=== PATIENT | male | born 1980 | race Caucasian/White ===

== ENCOUNTER 2018-08-25 09:26 | Day surgery (SDC) | payer MEDICAID, SELFPAY ==
--- NOTE | 2018-08-19 12:22 | EKG12_ITS ---
Test Reason : PRE OP Blood Pressure : / mmHG Vent. Rate : 068 BPM Atrial Rate : 068 BPM P-R Int : 156 ms QRS Dur : 080 ms QT Int : 366 ms P-R-T Axes : 035 056 063 degrees QTc Int : 389 ms Normal sinus rhythm Normal ECG Confirmed by MERLY WOODARD ([id number]), supervising editor trailer YINKA CONDON ([id number]) on 08/21/2018 1:08:35 PM Referred By: Stefano Molina Confirmed By:MERLY WOODARD
[2018-08-19 13:48] LABS: Absolute Lymphocyte Count 1.83 X10^3/ul (0.83-4.51); Basophil# 0.04 X10^3/uL; Basophil% 0.6 % (0-1); Eosinophil# 0.31 X10^3/uL; Eosinophils% 4.5 % (0-5); Hematocrit 47.9 % (40-54); Hemoglobin 16.1 g/dl (13.0-16.5); Lymphocyte # 1.83 X10^3/ul (4.0); Lymphocyte % 26.7 % (19-41); Mean Corp Hgb Conc 33.6 g/gl (32-36); Mean Corpuscular Volume 92.3 fL (80-94); Mean Platelet Vol. 10.4 fl (6.2-12.0); Monocyte# 0.63 X10^3/uL; Monocyte% 9.2 % (0-10); Neutrophil # 4.02 X10^3/uL (2.7-7.7); Neutrophil % 58.7 % (47-70); Platelet Count 320 K/mm3 (150-450); RBC Distribution Width CV 13.3 % (11.6-14.6); RBC Distribution Width SD 44.1 fl (35.1-43.9); Red Blood Count 5.19 M/mm3 (4.6-6.2); White Blood Count 6.9 K/mm3 (4.4-11.0)
[2018-08-19 13:51] LABS: POSITIVE COUNT NO; POSITIVE DIFFERENTIAL NO; POSITIVE MORPHOLOGY NO
[2018-08-25] VITALS (9 sets, daily range): BP systolic 127–168; BP diastolic 93–107; PULSE 56–94; RESP 16; TEMP 36.1–36.9; O2SAT 97–100; BMI 22.8
--- NOTE | 2018-08-25 11:18 | PCM.DC ---
You will use the following diet at home:: No restrictions Discharge Activity: May not drive while taking narcotic pain medications. Call your doctor if your incision/area has: Sudden Increased Bleeding, Increased Pain/ Swelling Additional Dressing/Incision Instructions:: saline to both nostrils 5 times daily. sleep with head of bed elevated. keep bridge of nose dry, until the morning of your follow up - then get it very wet. mupirocin to nasal incision twice daily Allergies/Adverse Reactions: Allergies No Known Allergies Allergy (Verified 08/18/18 13:39) Medications to take at Discharge Hydrocodone/Acetaminophen [[place] 5-325 Tablet] 1 ea PO Q6H 5 Days #20 tab 08/25/18 Sulfamethoxazole/Trimethoprim [Bactrim 400-80 mg Tablet] 1 ea PO BID #10 tab 08/25/18 The following prescriptions were given: Sulfamethoxazole/Trimethoprim [Bactrim 400-80 mg Tablet] 1 ea PO BID #10 tab Hydrocodone/Acetaminophen [[place] 5-325 Tablet] 1 ea PO Q6H 5 Days #20 tab Primary Care Physician: Edith Levi NP-C [Primary Care Provider] - Test Results: Test results from this visit will be discussed in further detail at your follow-up appointment, if applicable. Please Follow Up With: Stefano Molina MD When: 1 week
--- NOTE | 2018-08-25 11:20 | PCM.OPRPT ---
Problem List (1) Nasal congestion Status: Chronic (2) Nasal septal deviation Status: Chronic (3) Deviation of inferior turbinate Status: Chronic Report of Operation Date of Procedure: 08/25/18 Pre-Operative Diagnosis: 1. nasal congestion. 2. nasal septal deviation. 3. inferior turbinate hypertrophy, right and left. 4. internal nasal valve collapse, right and left Post-Operative Diagnosis: 1. nasal congestion. 2. nasal septal deviation. 3. inferior turbinate hypertrophy, right and left. 4. internal nasal valve collapse, right and left Surgery/Procedure Performed:: 1. open septorhinoplasty. 2. submucous resection inferior turbinates, right and left. 3. correction internal nasal valve collapse, right and left Type of Anesthesia:: General Description of Procedure: on the day of the procedure, after appropriate informed consent was obtained, the patient was brought to the operating room and placed in supine position on the operating table. he was placed under general endotracheal anesthesia by the anesthesiologist. the endotracheal tube was secured, tegaderm was placed on the eyes. the table was rotated 90 degrees toward the surgeon. the nose was prepped and draped in sterile fashion, and injected with lidocaine/epinephrine. the nose was decongested with oxymetazoline soaked pledgets. an inverted V columellar incision was made with a tribe blade. this traversed into right and left marginal incisions using three point retraction and an iris scizzor. the right and left lower lateral cartilages, the scroll region and the upper lateral cartilages were skeletonized. the medial crura were lateralized and the anterior septal angle was found with the colorado tip bovie. submucoperichondrial flaps were raised on the right then left with a amarjit elevator posteriorly to the bony cartilaginous junction and inferiorly to the maxillary crest. a 1.5 cm L-strut was preserved and the remainder of the septum was removed with a D knife and a amarjit elevator. deviated portions of the perpendicular plate of the ethmoid and vomer were resected using a tobin king. the upper lateral cartilages were disarticulated with the nasal septum using a #15 blade. 1cm x 2mm internal home care nurse grafts were placed between the right and left upper lateral cartilages and the septum bilaterally. these were sutured with 4-0 PDS. the head of the right and left inferior turbinates and the right and left lateral nasal sidewalls were injected with lidocaine/epinephrine. the head of the left inferior turbinate was incised with a #15 blade, dissected submucosally with a amarjit elevator, reduced using suction electrocautery and outfractured using a boies elevator. the head of the right inferior turbinate was incised with a #15 blade, dissected submucosally with a amarjit elevator, reduced using suction electrocautery and outfractured using a boies elevator. 2mm stab incisions were made on the right and left junction of the dorsum and lateral nasal sidewall. left then right medial/lateral osteotomies were made with a 2mm osteotome. the bony pyramid was brought back to the midline. merocel was placed in the left valve area to lateralize the left nasal bones. the columellar incision was closed with 7-0 vicryl. the submucoperichondrial flaps were closed with numerous 4-0 chromic quilting sutures. the marginal incisions were closed with 4-0 chromic. the dorsal stab incisions were closed with 5-0 fast gut. the latera trocar was loaded and inserted into the right vestibular skin. the trocar was taken deep to the skin and soft tissue envelope overlying thenasal bones and upper lateral cartilage. the implant was deployed and the trocar removed. the latera trocar was loaded and inserted into the left vestibular skin. the trocar was taken deep to the skin and soft tissue envelope overlying thenasal bones and upper lateral cartilage. the implant was deployed and the trocar removed. palacios splints were sutured into place and a dorsal nasal splint was placed. the table was rotated 90 degrees toward the anesthesiologist and extubated uneventfully. he was transferred to the PACU in stable condition.
[2018-08-25] MEDS: Oxymetazoline 0.05% 1 SPRAY SPRAY.BTL 15 SPRAY (12:00)
[2018-08-25] MEDS: Mupirocin Ointment 22gm Tube 1 APPLIC (12:00)
== END 2018-08-25 15:56 | disposition home or self-care (01) ==
LOC: SDC 09:28 → AC 09:28
PROVIDERS: Anesthesiology; Family Provider Nurse Practitioner Adult Health; PCP Nurse Practitioner Adult Health; Referring Provider Otolaryngology; Visit Provider Otolaryngology
PROC: (CPT 30140; principal; 2018-08-25 10:30)
DX: R09.81 Nasal congestion (principal); J34.2 Deviated nasal septum; J34.3 Hypertrophy of nasal turbinates; M95.0 Acquired deformity of nose; F17.210 Nicotine dependence, cigarettes, uncomplicated
CPT/HCPCS: 00160; 30140; 30420; 36415; 85025; 93005; J7120; J2405

== ENCOUNTER 2019-04-02 18:41 | Emergency (ER) | payer MEDICAID, SELFPAY ==
[2018-08-25 09:56] VITALS: BMI 22.8
[2019-04-02 18:42] VITALS: BP 146/90; PULSE 79; RESP 16; TEMP 36.7; O2SAT 100; BMI 23.1
--- NOTE | 2019-04-02 20:14 | ED.DCSUM_ITS ---
History of Present Illness Chief Complaint: Other, Pain/Inj Informant: Patient Onset: Days Context: Gradual Onset Narrative: Patient is a 39-year-old male with no significant past medical history presenting with swelling of his left jaw is a persistent rash on his upper lip. Patient states the rash is been present for the past month and a half. Is been seen at urgent care in [place] multiple times and he has been prescribed Bactrim and Keflex as well as using bacitracin ointment. Patient states the Bactrim seem to be helping at first but now nothing is helping. He denies associated fever or chills. He feels like it is slightly worsening. He denies any sick contacts or history of a similar rash. He states sometimes there is yellow drainage associated with it. He denies any difficulty swallowing or lip swelling. In addition over the past few days patient has noticed some swelling and discomfort at his right angle of his mandible. He states he feels like there is a bump there. He is concerned he might have cancer because he has had a couple of friends who have been recently diagnosed with throat cancer. Patient is currently in between primary care physicians because of insurance changes. He states he currently has melena but is been switched back to another insurance on April 16 where he can resume seeing his primary care doctor. Patient denies any weight changes, fever, chills, nausea, vomiting or other symptoms. Past Medical History - Allergies and Home Meds Allergies/Adverse Reactions: Allergies No Known Allergies Allergy (Verified 08/18/18 13:39) Primary Care Physician: Franck Bruce III, MD [Primary Care Provider] - Past Medical History: None Surgical History: noncontributory Smoking Status: Current every day smoker Review of Systems All systems negative except as indicated Musculoskeletal: Reports: - - Mild pain and swelling right neck next to the angle of the mandible Skin: Reports: Rash - Upper lip Physical Exam Vital Signs/Narrative: Vital Signs Temp Pulse Resp BP Pulse Ox 04/02/19 18:42 98.1 F 79 16 146/90 H 100 Inital Vital Signs reviewed: Yes General: Well nourished, Well developed, No Acute Distress Head: Normocephalic, Atraumatic Eyes: Perrl, EOMI ENT: Moist mucous membranes, No rhinorrhea, TM's clear. Negative for: Sinus tenderness Neck: Supple, Nontender, - - 1 cm distinct soft, smooth mobile mass just behind the right angle of the mandible consistent with a lipoma. No overriding erythema or associated drainage. Negative for: No lymphadenopathy, No JVD Cardiovascular: Regular rate, Regular rhythm, No murmurs Respiratory: No distress, CTA bilaterally, Chest nontender Abdomen: Soft, Nontender, Nondistended, Normal bowel sounds Back: Nontender, Normal Inspection Extremities: Nontender, No edema Skin: Normal color, Rash - Erythema and crusting approximately 2 cm diameter over the philtrum consistent with impetigo Neurological: Alert, Oriented x3, Cranial nerves II-XII grossly intact, Normal Strength, Normal Sensation Psychological: Normal affect, Normal Mood Diagnostic/Tx/Re-eval - Medical Decision Making Patient is evaluated for persistent rash on his upper lip/philtrum area as well as new discomfort and swelling to his right neck. Patient states he feels a lump. His physical exam is consistent with impetigo of his lip as well as a lipoma on his neck. I do not think further imaging or work-up is indicated as patient has normal vital signs and systemically looks well. Patient's oropharynx is normal and not swollen. Patient is encouraged to follow-up with his insurance provided primary care doctor for further healing on his impetigo. He can also be referred to dermatology from there as needed. Patient is counseled on signs and symptoms requiring return to the emergency room. He verbalizes agreement understand this plan. He is discharged home in stable condition. ED Disposition - Plan for ED Patient: Disposition: Home or Assisted Living Diagnosis: Impetigo, Localized swelling, mass and lump, neck Instructions: Impetigo, Lipoma Prescriptions: Doxycycline 100 mg PO BID #20 cap Prescription Printed Mupirocin 1 gm TP TID #1 [email or web address] Prescription Printed Referrals: Franck Bruce III, MD [Primary Care Provider] - Additional Instructions: Stop taking the prior antibiotics prescribed (Keflex and Bactrim as well as the bacitracin ointment). Start using the new antibiotic and ointment prescribed. Please follow-up with primary care doctor given to you by your current insurance within the next week. They can further evaluate your skin healing and neck. I suspect swelling on your neck is a lipoma. If you have worsening symptoms such as fever, weight loss or worsening rash please return to the emergency room. Do not shave the infected area on your lip as this can spread the infection.
--- NOTE | 2019-04-02 20:48 | ED.RN ---
THIS RN WENT TO DISCHARGE PATIENT. PT WAS FRUSTRATED AND UPSET THAT THE INITIAL PHYSICIAN THAT SAW HIM STATED SHE WAS THINKING OF ORDERING A CT ON HIM. HE WAS SEEN BY A SECOND PHYSICIAN FOR CONSULT AND PT STATED THAT PHYSICIAN STATED IT WAS NOT ANYTHING THAT NEEDS A CT SCAN. THIS RN ASKED IF HE WOULD BE WILLING TO WAIT FOR ME TO SPEAK WITH THE PHYSICIANS TO ASK ABOUT MAKING THINGS RIGHT FOR HIM OR AT LEAST A BETTER EXPLANATION OF THE REASONING. PT STATED HE HAD ALREADY BEEN HERE FOR 2 HOURS AND DID NOT WANT TO WAIT. HE ALSO STATED THAT WHEN HE RECEIVES A SURVEY IN THE MAIL HE WILL BE SURE TO FILL IT OUT ABOUT THE PHYSICIAN. THIS RN ONCE AGAIN ASKED IF THERE WAS SOMETHING I COULD DO TO ASSIST WITH THE SITUATION. HE DECLINED
[2019-04-02 21:00] VITALS: RESP 16
== END 2019-04-02 21:01 | disposition home or self-care (01) ==
PROVIDERS: Emergency Provider Emergency Medicine; Family Provider Family Medicine; PCP Family Medicine
DX: L01.00 Impetigo, unspecified (principal); F17.200 Nicotine dependence, unspecified, uncomplicated
CPT/HCPCS: 99282

== ENCOUNTER 2022-02-25 20:32 | Emergency (ER) | payer MEDICAID, SELFPAY ==
[2022-02-25 20:32] VITALS: BP 157/99; PULSE 91; RESP 14; TEMP 36.2; O2SAT 98; BMI 20.9
[2022-02-25 20:39] VITALS: BP 116/95; PULSE 84; RESP 16; O2SAT 96
--- NOTE | 2022-02-25 22:34 | EX.ED.VIS.PS ---
HPI HPI - Psych History of Present Illness Chief Complaint: Depression Narrative Narrative: 41-year-old male presenting with depression. He states he is not suicidal or homicidal. He states he is depressed over the loss of his girlfriend who had been with many years. He states that since they broke up he does not get to see the kids anymore. He states he lost his best friend and the kids and is lonely. Patient states that [place] and it made him sad. He has been having trouble sleeping at night be due to racing thoughts but is not manic. No history of depression or anxiety. He says he is never experienced anything like this before. He states he is otherwise healthy and has not seen a doctor in 25 years. He does not have any hobbies. He states he works 6 days a week [employer] for 12 hours a day. PFSH PFSH Medical History Smoker Home Medications doxycycline monohydrate 100 mg capsule 100 mg PO BID #20 caps 04/02/19 [Rx Last Taken Unknown] mupirocin 2 % topical ointment 1 gm TP TID ##1 04/02/19 [Rx Last Taken Unknown] trazodone 100 mg tablet 100 mg PO QHS PRN insomnia #14 tabs 02/25/22 [Rx Last Taken Unknown] Allergy/AdvReac Type Severity Reaction Status Date / Time No Known Allergies Allergy Verified 02/25/22 20:32 Surgical History History of appendectomy History of rhinoplasty History of tonsillectomy and adenoidectomy Social History Smoking Status: Current every day smoker tobacco type: cigarettes ROS ROS ED Constitutional Constitutional ED: Denies chills or fever(s) Eyes Eyes: Denies change in vision ENT ENT ED: Denies rhinorrhea or sore throat Cardiovascular Cardiovascular: Denies chest pain or palpitations Respiratory/Chest Respiratory/Chest: Denies cough or dyspnea Gastrointestinal Gastrointestinal: Denies abdominal pain or constipation Genitourinary Genitourinary ED: Denies dysuria or hematuria Musculoskeletal Musculoskeletal: Denies arthralgias or back pain Integumentary Denies abscess or Abrasions Neurologic Neurologic: Denies headache(s) Psychiatric Psychiatric: Reports depression; Denies suicidal ideation or suicidal thoughts Endocrine Endocrinology: Denies polydipsia or polyphagia EXAM Physical Exam Const Vital Signs: 02/25/22 20:32 02/25/22 20:39 Temperature 97.2 F L Temperature Source Temporal Pulse Rate 91 84 Respiratory Rate 14 16 Blood Pressure 157/99 H 116/95 H Blood Pressure Mean 118 102 Pulse Ox 98 96 Oxygen Delivery Method Room Air Room Air Positive well nourished General Appearance ED: NAD; Negative for pallor HEENT Reports moist mucous membranes normocephalic and atraumatic Eyes PERRL and EOMs intact bilaterally General Eye ED: Negative for pale conjunctiva or scleral icterus Resp normal respiratory effort and clear to auscultation bilaterally Auscultation: Negative for rales, rhonchi or wheezes Cardio Rate: regular rate Rhythm: regular rhythm Neuro oriented x3 and CN's II-XII intact bilaterally Sensorium / Orientation: alert Motor Exam: strength 5/5 throughout Psych mental status grossly normal, speech normal, activity/motor behavior normal, denies hallucinations, denies homicidal ideation and denies suicidal ideation Appearance: grossly normal Attitude: calm and engaged Activity / Motor Behavior: appropriate eye contact Mood & Affect: euthymic mood Thought Process: normal thought process Thought Content: normal thought content Attention / Concentration: attention grossly intact and concentration grossly intact Memory / Cognition: memory grossly intact Insight: insight good Judgement: judgement good Skin General Skin Exam: Negative for jaundice or pallor MDM MDM MDM Narrative Medical decision making narrative: Patient presenting with depression. He is looking for resources on an outpatient basis. He is not homicidal or suicidal. He also request something to help him sleep at night. Patient was prescribed trazodone to see if this will help him sleep at night. He is given referral information for outpatient psychiatric care. Return precautions were discussed. Impression: 1. Depression 2. Insomnia Lab Data Attestation: I reviewed the patient's lab results. Discharge Plan Triage Chief Complaint: Depression ED Provider: Sukhdeep Nguyen Dx/Rx/DC Orders Instructions: ED Depression, ED Insomnia Prescriptions: New trazodone 100 mg tablet 100 mg PO QHS PRN (Reason: insomnia) Qty: 14 0RF No Action doxycycline monohydrate 100 MG capsule 100 mg PO BID Qty: 20 0RF mupirocin 1 GM ointment 1 gm TP TID Qty: 1 0RF Rx Instructions: Apply to the affected area times a day for 5 days Primary Care Provider: Care Physician,No Primary Referrals: Care Physician,No Primary [Primary Care Provider] - Disposition Disposition: Home, Self Care
[2022-02-25 22:52] VITALS: BP 132/86; PULSE 61; RESP 18
== END 2022-02-25 22:53 | disposition home or self-care (01) ==
PROVIDERS: Emergency Provider Student in an Organized Health Care Education/Training Program; Visit Provider Student in an Organized Health Care Education/Training Program
DX: F32.A Depression, unspecified (principal); F17.210 Nicotine dependence, cigarettes, uncomplicated; G47.00 Insomnia, unspecified
CPT/HCPCS: 99282

== ENCOUNTER → 2022-02-28 | Outpatient (CLI) | payer MEDICAID, SELFPAY ==
[2022-02-28 12:11] LABS: Absolute Lymphocyte Count 0.85 X10^3/uL (0.83-4.51); Basophil# 0.09 X10^3/uL; Basophil% 0.6 % (0-1); Eosinophil# 0.03 X10^3/uL; Eosinophils% 0.2 % (0-5); Hematocrit 51.6 % (40-54); Hemoglobin 17.2 g/dL (13.0-16.5); Lymphocyte # 0.85 X10^3/ul (0.83-4.51); Lymphocyte % 5.5 % (19-41); Mean Corp Hgb Conc 33.3 g/dL (32-36); Mean Corpuscular Hgb 31.4 pg (27.0-32.0); Mean Corpuscular Volume 94.3 fL (80-94); Mean Platelet Vol. 9.4 fl (6.2-12.0); Monocyte# 0.44 X10^3/uL; Monocyte% 2.8 % (0-10); NRBC Flagged by Analyzer 0 % (0-5); Neutrophil # 13.97 X10^3/uL (2.7-7.7); Platelet Count 382 K/mm3 (150-450); RBC Distribution Width CV 13.4 % (11.6-14.6); RBC Distribution Width SD 46.7 fl (35.1-43.9); Red Blood Count 5.47 M/mm3 (4.6-6.2); White Blood Count 15.5 K/mm3 (4.4-11.0)
[2022-02-28 13:04] LABS: ALB/GLOB Ratio 1.3 RATIO (0.9-2.4); AST(SGOT) 18 U/L (15-37); Alanine Aminotransfer ALT/SGPT 38 U/L (16-61); Albumin, Serum 4.4 g/dL (3.2-5.0); Alkaline Phosphatase 97 U/L (45-117); Anion Gap 7 (5-15); BUN 19 mg/dL (7-18); BUN/Creat Ratio 15.7 RATIO (10-20); Calcium,Total 9.6 mg/dL (8.5-10.1); Chloride 103 mmol/L (98-107); Cholesterol 159 mg/dL (200); Creatinine, Serum 1.21 mg/dL (0.70-1.30); EST Glomerular Filtration Rate 69 mL/min (>60); Est Glom Filt Rate - Afr Amer 84 mL/min (>60); Globulin 3.5 g/dL (2.2-4.2); Glucose 91 mg/dL (74-106); High Density Lipoprotein 65 mg/dL; Potassium 4.2 mmol/L (3.5-5.1); Protein, Total 7.9 g/dL (6.4-8.2); Sodium Level 137 mmol/L (136-145); Triglycerides 82 mg/dL; Very Low Density Lipoprotein 16 mg/dL (5-40)
== END | disposition home or self-care (01) ==
LOC: BIMLAB 10:53
PROVIDERS: PCP Internal Medicine; Referring Provider Internal Medicine; Visit Provider Internal Medicine
DX: Z13.6 Encounter for screening for cardiovascular disorders (principal); F32.A Depression, unspecified
CPT/HCPCS: 36415; 80053; 80061; 85025